=== PATIENT | male | born 1995 | race Caucasian/White ===

== ENCOUNTER 2018-07-08 22:57 | Emergency (ER) | payer OTHER ==
[~2018-07-08] VITALS: Ht 180.3 cm; Wt 72.7 kg
[2018-07-08 22:58] VITALS: BP 136/84
[2018-07-10] MEDS ORDERED: METAL LOCK LOOP XX ONE (07:52)
== END 2018-07-09 01:12 | disposition left against medical advice (07) ==
LOC: M ED 22:57
DX: R05 Cough (principal); Z53.21 Procedure and treatment not carried out due to patient leaving prior to being seen by health care provider